=== PATIENT | male | born 1940 | race Caucasian/White ===

== ENCOUNTER 2017-09-29 15:15 | Emergency (ER) | payer BC, OTHER ==
[~2017-09-29] VITALS: Ht 170.2 cm; Wt 76.0 kg
[~2017-09-29 15:15] MED LIST: BISOPROLOL-HCT1 EACH PO; CEFTIN500 MG PO; Colace PO; Coreg PO; Ecotrin PO; Effient PO; GLUCOPHAGE500 MG PO; HYDROCODON-ACE1 EAC7 PO; LISINOPRIL20 MG PO; PRAVASTATIN SOD80 MG PO; Protonix PO; SINGULAIR10 MG PO; Singulair PO; Zestril,Prinivil PO
[2017-09-29 15:51] LABS: HEMATOCRIT 34.9 % (38.0-50.0); HEMOGLOBIN 11.9 G/DL (12.5-16.6); MCHC 34.1 G/DL (30.0-36.0); MCV 84.9 FL (86-99); PLATELET COUNT 218 K/uL (156-360); RBC DIS.WIDTH-CV 13.4 % (11.8-14.6); RBC DIS.WIDTH-SD 41.7 % (39-53); RED BLOOD COUNT 4.11 M/uL (4.00-5.50); WHITE BLOOD COUNT 9.7 K/uL (4.1-10.2)
[2017-09-29 16:16] LABS: CHLORIDE 108 MEQ/L (99-109); POTASSIUM 4.1 MEQ/L (3.7-5.4); SODIUM 140 MEQ/L (136-147)
[2017-09-29 16:21] LABS: CREATININE 1.1 MG/DL (0.6-1.3); GFR ESTIMATE (CALCULATED) > 59 mL/min/ (58.99-99999); GLUCOSE 174 mg/dL (70-99); UREA NITROGEN (BUN) 18 mg/dL (9-23)
[2017-09-29 16:25] LABS: TROP-I INTERPRETATION NEGATIVE; TROPONIN-I < 0.01 ng/mL (0.0-0.30)
[2017-09-29 18:26] LABS: TROP-I INTERPRETATION NEGATIVE; TROPONIN-I < 0.01 ng/mL (0.0-0.30)
[2017-09-29 18:47] VITALS: BP 153/85
== END 2017-09-29 18:48 | disposition home or self-care (01) ==
LOC: EME 15:15
PROVIDERS: Nurse Practitioner Family
DX: R07.9 Chest pain, unspecified (principal); R11.0 Nausea; I49.3 Ventricular premature depolarization; K21.9 Gastro-esophageal reflux disease without esophagitis; I10 Essential (primary) hypertension; E78.5 Hyperlipidemia, unspecified; J44.9 Chronic obstructive pulmonary disease, unspecified; E11.9 Type 2 diabetes mellitus without complications; I25.2 Old myocardial infarction; Z79.4 Long term (current) use of insulin; Z95.9 Presence of cardiac and vascular implant and graft, unspecified; Z87.442 Personal history of urinary calculi; Z88.5 Allergy status to narcotic agent
CPT/HCPCS: 71046; 80048; 84484; 85027; 93005; 99281; 99284